=== PATIENT | male | born 1945 | race Caucasian/White ===

== ENCOUNTER 2018-12-05 07:55 | Outpatient (CLI) | payer MEDICARE ==
[2018-12-05 10:09] LABS: BASOPHILS % (AUTO) 0.8 %; EOSINOPHILS # (AUTO) 0.1 10^3/uL (0.0-0.7); EOSINOPHILS % (AUTO) 1.5 %; HGB - HEMOGLOBIN 14.8 g/dL (14.0-18.0); LYMPHOCYTES # (AUTO) 1.6 10^3/uL (1.5-3.5); LYMPHOCYTES % (AUTO) 29.4 %; MEAN CORPUSCULAR HEMOGLOBIN 31.7 pg (27.0-31.0); MEAN CORPUSCULAR HGB CONC 34.2 g/dL (32.0-36.0); MEAN CORPUSCULAR VOLUME 92.7 fL (80.0-94.0); MEAN PLATELET VOLUME 9.6 fL (7.4-11.4); MONOCYTES # (AUTO) 0.5 10^3/uL (0.0-1.0); MONOCYTES % (AUTO) 9.3 %; NEUTROPHILS # (AUTO) 3.2 10^3/uL (1.5-6.6); PLT - PLATELET COUNT 192 10^3/uL (130-450); RED BLOOD COUNT 4.67 10^6/uL (4.70-6.10); RED CELL DISTRIBUTION WIDTH 14.3 % (12.0-15.0); WHITE BLOOD COUNT 5.4 x10^3/uL (4.8-10.8)
[2018-12-05 10:40] LABS: ALBUMIN/GLOBULIN RATIO 1.4 (1.0-2.2); ALKALINE PHOSPHATASE 59 IU/L (42-121); ALT ALANINE AMINOTRANSFERASE 26 IU/L (10-60); AST ASPARTATE AMINOTRANSFERASE 22 IU/L (10-42); BILIRUBIN,TOTAL 1.8 mg/dL (0.2-1.0); BUN - BLOOD UREA NITROGEN 11 mg/dL (6-20); CALCIUM 9.7 mg/dL (8.5-10.3); CARBON DIOXIDE - CO2 26 mmol/L (21-32); CHLORIDE 98 mmol/L (101-111); CHOL/HDL RATIO 3.5 (<5.0); CHOLESTEROL 126 mg/dL; CREATININE 0.9 mg/dL (0.6-1.2); GFR - MDRD 83 (>89); GLUCOSE 242 mg/dL (70-100); HDL CHOLESTEROL 36 mg/dL; LDL CHOLESTEROL,CALCULATED 25 mg/dL; LDL/HDL RATIO 0.7 (<3.6); SODIUM 136 mmol/L (135-145); TOTAL PROTEIN 6.9 g/dL (6.7-8.2); VLDL CHOLESTEROL 65 mg/dL
[2018-12-05 10:52] LABS: HB2 TOTAL 15.6 g/dL; HEMOGLOBIN A1C 1.05 g/dL; HEMOGLOBIN A1C % 8.3 % (4.6-6.2)
== END 2018-12-05 07:56 | disposition home or self-care (01) ==
LOC: LAB.F 07:55
PROVIDERS: ATTEND Internal Medicine
DX: E78.5 Hyperlipidemia, unspecified (principal); E11.9 Type 2 diabetes mellitus without complications; R19.7 Diarrhea, unspecified
CPT/HCPCS: 36415; 80053; 80061; 83036; 83516; 83721; 84443; 85025

== ENCOUNTER 2023-04-02 21:34 | Outpatient (CLI) | payer MEDICARE | END 2023-04-02 23:59 | disposition EMS.NT | LOC: EMS 21:34 | DX: S51.812A Laceration without foreign body of left forearm, initial encounter (principal); W10.9XXA Fall (on) (from) unspecified stairs and steps, initial encounter; Y92.009 Unspecified place in unspecified non-institutional (private) residence as the place of occurrence of the external cause; Z79.02 Long term (current) use of antithrombotics/antiplatelets ==

== ENCOUNTER 2023-04-03 09:46 | Outpatient (CLI) | payer MEDICARE | END 2023-04-03 09:47 | disposition critical access hospital (66) | LOC: EMS 09:46 | DX: R53.1 Weakness (principal) | CPT/HCPCS: A0425; A0429 ==

== ENCOUNTER 2023-04-03 10:11 | Emergency (ER) | payer MEDICARE ==
--- OUTSIDE RECORDS SUMMARY | 2023-04-03 10:24 | EXTERNAL MEDICAL SUMMARY RPT | Continuity of Care Document ---
Author Name Unknown Address [address] [id number] Phone Organization [place] Address [address] [place] [address] Phone Results/Labs test date facility value unit notes
[2023-04-03] MEDS ORDERED: SODIUM CHLORIDE 0.9% 1,000 ML IV STA (10:39)
[2023-04-03 10:44] LABS: BASOPHILS # (AUTO) 0.1 10^3/uL (0.0-0.1); BASOPHILS % (AUTO) 0.9 %; EOSINOPHILS # (AUTO) 0.1 10^3/uL (0.0-0.7); EOSINOPHILS % (AUTO) 1.9 %; HCT - HEMATOCRIT 36.9 % (42.0-52.0); HGB - HEMOGLOBIN 12.3 g/dL (14.0-18.0); LYMPHOCYTES # (AUTO) 0.8 10^3/uL (1.5-3.5); LYMPHOCYTES % (AUTO) 14.1 %; MEAN CORPUSCULAR HEMOGLOBIN 33.8 pg (27.0-31.0); MEAN CORPUSCULAR HGB CONC 33.3 g/dL (32.0-36.0); MEAN CORPUSCULAR VOLUME 101.4 fL (80.0-94.0); MEAN PLATELET VOLUME 10.8 fL (7.4-11.4); MONOCYTES # (AUTO) 0.7 10^3/uL (0.0-1.0); MONOCYTES % (AUTO) 11.8 %; NEUTROPHILS # (AUTO) 4.2 10^3/uL (1.5-6.6); NEUTROPHILS % (AUTO) 71.1 %; PLT - PLATELET COUNT 79 10^3/uL (130-450); RED BLOOD COUNT 3.64 10^6/uL (4.70-6.10); RED CELL DISTRIBUTION WIDTH 14.2 % (12.0-15.0); WHITE BLOOD COUNT 5.9 x10^3/uL (4.8-10.8)
[2023-04-03 10:58] LABS: ALBUMIN/GLOBULIN RATIO 1.7 (1.0-2.2); BILIRUBIN,TOTAL 1.5 mg/dL (0.2-1.0); CALCIUM 9.8 mg/dL (8.5-10.3); CREATININE 1.1 mg/dL (0.6-1.3); POTASSIUM 4.1 mmol/L (3.5-4.5); TOTAL PROTEIN 6.3 g/dL (6.4-8.9)
--- NOTE | 2023-04-03 12:31 | ED Physician Documentation ---
PD HPI FOCAL NEURO - Stated complaint Stated Complaint: Fall - Chief complaint Chief Complaint: Trauma Ext - History obtained from History obtained from: Patient - Additional information Additional information: Patient is a 77-year-old male with a history of coronary artery disease, peripheral artery disease presenting for evaluation of left leg and arm weakness that he noted last night as he was going upstairs to bed. Patient states that he tripped walking up the stairs fell backwards. He does not believe he hit his head. He did not have LOC. He reports having difficulty in moving his left leg which still feels weak this morning. He has also noted difficulty in coordination with his left arm. He denies a headache. He does take a daily baby aspirin and Plavix. He follows with vascular surgery at [facility]. He denies chest pain, shortness of air, recent illness. Review of Systems Constitutional: denies: Fever Cardiac: denies: Chest pain / pressure Respiratory: denies: Dyspnea Neurologic: reports: Focal weakness PD PAST MEDICAL HISTORY - Allergies Allergies/Adverse Reactions: Allergies Allergy/AdvReac Type Severity Reaction Status Date / Time No Known Drug Allergies Allergy Verified 04/03/23 10:27 PD ED PE NORMAL - General General: Alert and oriented X 3, No acute distress, Well developed/nourished - HEENT HEENT: Atraumatic, PERRL, EOMI, Moist mucous membranes - Neck Neck: Supple, no meningeal sign - Cardiac Cardiac: RRR, No murmur - Respiratory Respiratory: No respiratory distress, Clear bilaterally - Abdomen Abdomen: Soft, Non tender - Derm Derm: Warm and dry - Neuro Neuro: Alert and oriented X 3, auction block clerk 2-12 intact, No sensory deficit, Normal speech, Other (Difficulty with [id number]-ct-[id number] of left arm). No: No motor deficit NIHSS - Level of Consciousness Level of consciousness: (0) Alert, Keenly responsive LOC Questions: (0) Answers both Q's correct LOC Commands: (0) Performs both correctly - Gaze Best Gaze: (0) Normal - Visual Visual: (0) No loss - Facial Palsy Facial Palsy: (0) Normal, symmetrical movement - Motor Arms (both separate) Motor Arm (right): (0) No drift Motor Arm (left): (1) Drift - Motor Legs (both separate) Motor Leg (right): (0) No drift Motor Leg (left): (0) No drift - Limb Ataxia Limb Ataxia: (1) Present in 1 limb - Sensory Sensory: (0) Normal - Best Language Best Language: (0) No aphasia - Dysarthria Dysarthria: (0) Normal - Extinction and Inattention (formally neg Extinction and inattention: (0) No abnormality - Total Score/Results Total Score/Result: 2 Results - Vitals Vitals: Vital Signs - 24 hr 04/03/23 04/03/23 04/03/23 10:21 14:24 15:59 Temperature 36.5 C Heart Rate 66 69 67 Respiratory 18 16 23 Rate Blood Pressure 134/67 H 129/68 119/60 O2 Saturation 97 97 96 Oxygen O2 Source Room air - EKG (time done) 1035 EKG releavant findings:: EKG personally interpreted by author of this note. Relevant findings are: Rate 66, normal sinus rhythm, no STEMI, Intraventricular conduction delay Rate: Rate (enter#) (66) Rhythm: NSR Intervals: Other (Intraventricular conduction delay) Ischemia: No: ST elevation c/w ischemia Compare to prior EKG: Unchanged from prior EKG - Labs Labs: Laboratory Tests 04/03/23 04/03/23 10:30 10:30 WBC 5.9 RBC 3.64 L Hgb 12.3 L Hct 36.9 L MCV 101.4 H MCH 33.8 H MCHC 33.3 RDW 14.2 Plt Count 79 L MPV 10.8 Neut # (Auto) 4.2 Lymph # (Auto) 0.8 L [place] # (Auto) 0.7 Eos # (Auto) 0.1 Baso # (Auto) 0.1 Absolute Nucleated RBC 0.00 Nucleated RBC % 0.0 Sodium 138 Potassium 4.1 Chloride 105 Carbon Dioxide 26 Anion Gap 7.0 BUN 19 Creatinine 1.1 Estimated GFR (MDRD) 65 L Glucose 114 H Calcium 9.8 Total Bilirubin 1.5 H AST 17 ALT 14 Alkaline Phosphatase 57 Total Protein 6.3 L Albumin 4.0 Globulin 2.3 Albumin/Globulin Ratio 1.7 PD Medical Decision Making - ED course Complexity details: reviewed results, re-evaluated patient, d/w patient ED course: Patient is a 77-year-old with a history of coronary artery disease and peripheral vascular disease presenting for evaluation of left-sided weakness since last night. He is outside the window for thrombolytics. He does have deficits noted on exam. Labs were obtained including CBC, chemistries which were noncontributory. EKG is reviewed and a sinus rhythm. CT head and head and neck angios were reviewed. Or concerning stenoses in bilateral carotid and vertebral arteries which I reviewed with telestroke as well as vascular surgery. Patient has been accepted to [facility] for vascular surgery evaluation. He has been continued on aspirin and Plavix. 1345 - D/W Telestroke. They are recommending starting patient on Brilinta and stopping the Plavix. They are also recommending transfer to facility with vascular surgery. 1425 - D/W Dr. Tabor (Vascular, ) - Agrees to consult on the patient. Recommends admission to hospitalist service. Also discussed to telestroke's recommendations to transition to Brilinta which we do not carry. He states he would not view this as a Plavix failure and will recommend to continue on aspirin and Plavix for now. 1449 - D/W Dr. Hunter (Hospitalist, ) - Agrees to admit the patient for further management. Departure - Departure Disposition: 02 Transfer Acute Care Hosp Clinical Impression: CVA (cerebral vascular accident), Carotid stenosis, bilateral, Stenosis of both vertebral arteries Condition: Good Forms: PCP List Discharge Date/Time: 04/03/23 16:56
--- NOTE | 2023-04-03 13:10 | CT Report ---
PROCEDURE: HEAD WO INDICATIONS: L sided weakness since yesterday TECHNIQUE: Noncontrast 4.5 mm thick angled axial sections acquired from the foramen magnum to the vertex. For r adiation dose reduction, the following was used: automated exposure control, adjustment of mA and/or kV according to patient size. COMPARISON: Correlation is made with the accompanying CT angiogram. FINDINGS: Image quality: Excellent. CSF spaces: Basal cisterns are patent. No extra-axial fluid collections. Ventricles are normal in size and shape. Brain: No midline shift. No intracranial masses or hemorrhage. Ramirez-white matter interface is norm al. Skull and face: Calvarium and visualized facial bones are intact, without suspicious lesions. Sinuses: Visualized sinuses and mastoids are clear. IMPRESSION: No intracranial hemorrhage is seen. No significant intracranial abnormality is seen. If there is strong clinical concern for a stroke, please consider a dedicated brain MRI for further e valuation (assuming that there is no contraindication to MRI). Reviewed by: William Barrett MD on 04/03/2023 12:09 PM JOSE Approved by: William Barrett MD on 04/03/2023 12:09 PM JOSE Station ID: [id number]
--- NOTE | 2023-04-03 13:16 | CT Report ---
PROCEDURE: CT Angio Head/Neck INDICATIONS: L sided weakness since yesterday TECHNIQUE: After the administration of intravenous contrast, 1 mm thick sections acquired from the aortic arch t hrough the [place]. Post-contrast 4.5 mm thick sections then re-acquired from the foramen m agnum to the vertex. 3-dimensional sizhpfb-vjmgiatxk-pscibosirv (MIP) and/or volume rendering reform ats were acquired of the central intracranial vasculature and neck separately. For radiation dose re duction, the following was used: automated exposure control, adjustment of mA and/or kV according to patient size. CONTRAST: 100ml omni 300 COMPARISON: Correlation is made with the accompanying noncontrast head CT. FINDINGS: Image quality: This study is limited by quantum mottle artifact. HEAD CT: CSF Spaces: Basal cisterns are patent. No extra-axial fluid collections. Ventricles are normal in size and shape. Brain: No midline shift. No intracranial bleeds or masses. No abnormal intracranial enhancement. Ramirez-white interface appears normal. Skull and face: Calvarium and visualized facial bones appear intact, without suspicious lesions. St ernotomy changes are noted. Sinuses: Visualized sinuses and mastoids are clear. HEAD CT ANGIOGRAPHY: Anterior circulation: Intracranial internal carotid arteries demonstrate dense atherosclerotic calci fication, without a 60% narrowing seen on each side. The flow within the paired anterior cerebral art eries is normal and symmetric. The flow within the middle cerebral arteries is normal and symmetric. The anterior communicating artery is seen. No aneurysms are seen. Posterior circulation: Focal calcification can be seen involving the left before segment, with an are a of approximately 50% narrowing. The V4 segments are otherwise unremarkable. There is a a normal suman earing basilar artery. Flow within the posterior cerebral arteries is normal and symmetric. No aneu rysms are seen. NECK CT ANGIOGRAPHY: Carotid system: The great vessels demonstrate a conventional anatomy as they arise from the aortic a rch. The origins of the common carotid arteries appear patent. The common carotid arteries demonstr ate normal caliber and courses. The bifurcation regions demonstrate dense atherosclerotic calcificat ion. There is 70-80% narrowing seen involving the left proximal internal carotid artery. There is suman roximately 70% narrowing involving the left proximal internal carotid artery. The more distal interna l carotid arteries demonstrate normal course and caliber. Posterior circulation: There is dense calcification seen involving the left vertebral artery origin, with likely 80-90% narrowing. Moderate calcification can be seen involving the origin of the right ve rtebral artery, with likely 70-80% narrowing. Soft tissues: Visualized neck soft tissues demonstrate no suspicious abnormalities. Bones: No suspicious bony lesions. Visualized cervical spine appears normally aligned. Moderate ce rvical spine degenerative change is seen. IMPRESSION: No significant intracranial arterial abnormalities are seen. Focal narrowing seen in the seen involving the origins of both internal carotid arteries, left worse than right. High-grade narrowing can be seen involving the proximal vertebral arteries, left worse than right. Approximately 50% narrowing seen involving the left V4 segment. Additional findings: Moderate cervical spine degenerative change Sternotomy The estimate of stenosis included in the report of the imaging study was calculated using the NASCET method Reviewed by: William Barrett MD on 04/03/2023 12:14 PM JOSE Approved by: William Barrett MD on 04/03/2023 12:14 PM JOSE Station ID: [id number]
[2023-04-03] MEDS ORDERED: ASPIRIN CHEW 81 MG TABLET PO STA (14:25)
[2023-04-03] MEDS ORDERED: CLOPIDOGREL 75 MG TABLET PO STA (14:25)
[2023-04-03 16:05] VITALS: BP 119/60; O2SAT 96
[2023-04-03] MEDS ORDERED: iohexoL-300 100 ML VIAL IVP ONE (17:57)
== END 2023-04-03 16:56 | disposition short-term general hospital (02) ==
LOC: EDUNIT# → ED 10:11
DX: I65.23 Occlusion and stenosis of bilateral carotid arteries (principal); I63.9 Cerebral infarction, unspecified; I65.03 Occlusion and stenosis of bilateral vertebral arteries; R29.702 NIHSS score 2
CPT/HCPCS: 36415; 70450; 70496; 70498; 80053; 85025; 93005; 99285; A9270; Q9967

== ENCOUNTER 2023-04-03 16:28 | Outpatient (CLI) | payer MEDICARE | END 2023-04-03 16:29 | disposition short-term general hospital (02) | LOC: EMS 16:28 | PROVIDERS: ATTEND Emergency Medicine | DX: I63.239 Cerebral infarction due to unspecified occlusion or stenosis of unspecified carotid artery (principal) | CPT/HCPCS: A0425; A0426 ==

== ENCOUNTER 2023-09-30 13:11 | Outpatient (CLI) | payer MEDICARE | END 2023-09-30 23:59 | disposition left against medical advice (07) | LOC: EMS 13:11 | DX: R10.11 Right upper quadrant pain (principal); R07.81 Pleurodynia; W18.12XA Fall from or off toilet with subsequent striking against object, initial encounter; Y92.012 Bathroom of single-family (private) house as the place of occurrence of the external cause ==

== ENCOUNTER 2023-09-30 16:30 | Outpatient (CLI) | payer MEDICARE | END 2023-09-30 16:31 | disposition EMS.NT | LOC: EMS 16:30 | DX: Z03.89 Encounter for observation for other suspected diseases and conditions ruled out (principal) ==

== ENCOUNTER 2023-10-04 09:15 | Outpatient (CLI) | payer MEDICARE | END 2023-10-04 23:59 | disposition EMS.NT | LOC: EMS 09:15 | DX: R53.1 Weakness (principal) ==

== ENCOUNTER 2023-10-05 07:52 | Outpatient (CLI) | payer MEDICARE | END 2023-10-05 23:59 | disposition EMS.NT | LOC: EMS 07:52 | DX: Z03.89 Encounter for observation for other suspected diseases and conditions ruled out (principal) ==

== ENCOUNTER 2023-12-29 08:47 | Outpatient (CLI) | payer MEDICARE | END 2023-12-29 23:59 | disposition critical access hospital (66) | LOC: EMS 08:47 | DX: R11.2 Nausea with vomiting, unspecified (principal); R19.7 Diarrhea, unspecified; I48.91 Unspecified atrial fibrillation | CPT/HCPCS: A0425; A0427 ==

== ENCOUNTER 2023-12-29 09:12 | Inpatient (IN) | payer MEDICARE ==
--- NOTE | 2023-12-29 09:33 | ED Physician Documentation ---
PD HPI NVD - Stated complaint Stated Complaint: N/V/D - Chief complaint Chief Complaint: Abd Pain - History obtained from History obtained from: Patient - History of Present Illness Timing - onset: How many days ago (4-5) Timing - duration: Days (4-5) Timing - details: Gradual onset, Still present Associated symptoms: Dizzy (lightheaded), Loss of appetite. No: Fever, Abdominal pain Contributing factors: No: Sick contact, Bad food Similar symptoms before: Has not had sx before Recently seen: Clinic (donny portillo yesterday to look at right BKA leg wound and appearance appearing okay.) Review of Systems Constitutional: denies: Fever, Chills GI: reports: Nausea, Vomiting, Diarrhea (2 loose stools just yesterday). denies: Abdominal Pain, Abdominal Swelling, Hematemesis Skin: denies: Rash, Lesions (has wound at right BKA that was infected, but is not having redness/swelling/pain proximal.) PD PAST MEDICAL HISTORY - Past Medical History Past Medical History: Yes Endocrine/Autoimmune: Type 2 diabetes - Past Surgical History Past Surgical History: Yes Ortho: Other - Present Medications Home Medications: Ambulatory Orders Medication Instructions Recorded Confirmed Amlodipine Besylate [Norvasc] 10 mg PO DAILY 12/29/23 Clopidogrel [Plavix] 75 mg PO DAILY 12/29/23 Empagliflozin [Jardiance] 10 mg PO DAILY 12/29/23 Ertugliflozin Pidolate [Steglatro] 15 mg PO DAILY 12/29/23 Furosemide [Lasix] 40 mg PO DAILY 12/29/23 Lisinopril [Zestril] 20 mg PO DAILY 12/29/23 Metoprolol Succinate 100 mg PO DAILY 12/29/23 Nortriptyline [Pamelor] 25 mg PO QPM 12/29/23 Rosuvastatin Calcium 20 mg PO HS 12/29/23 SITagliptin [Januvia] 100 mg PO DAILY 12/29/23 Spironolactone [Aldactone] 25 mg PO DAILY 12/29/23 glipiZIDE [Glipizide] 10 mg PO DAILY 12/29/23 oxyCODONE [Roxicodone] 5 mg PO Q4-6H PRN 12/29/23 - Allergies Allergies/Adverse Reactions: Allergies Allergy/AdvReac Type Severity Reaction Status Date / Time No Known Drug Allergies Allergy Verified 12/29/23 09:24 - Social History Does the pt smoke?: No Smoking Status: Never smoker Does the pt drink ETOH?: No Does the pt have substance abuse?: No PD ED PE NORMAL - Vitals Vital signs reviewed: Yes - General General: Alert and oriented X 3, No acute distress, Well developed/nourished - Extremities Extremities: Other (right BKA wound with open sore on stump end without purulence. No proximal redness/tenderness/swelling above wound nor in thigh.) - Neuro Neuro: Alert and oriented X 3, No motor deficit, Normal speech Results - Vitals Vitals: Vital Signs - 24 hr 12/29/23 12/29/23 12/29/23 11:24 13:00 15:00 Heart Rate 111 H 109 H 110 H Respiratory 19 13 18 Rate Blood Pressure 113/80 108/75 O2 Saturation 96 98 100 12/29/23 17:30 Heart Rate 112 H Respiratory 22 Rate Blood Pressure 109/80 O2 Saturation 97 Oxygen O2 Source Room air - Labs Labs: Laboratory Tests 12/29/23 12/29/23 12/29/23 09:53 09:53 09:53 WBC 10.0 RBC 4.14 L Hgb 10.6 L Hct 37.5 L MCV 90.6 MCH 25.6 L MCHC 28.3 L RDW 19.9 H Plt Count 312 MPV 11.0 Neut # (Auto) 9.2 H Lymph # (Auto) 0.4 L [place] # (Auto) 0.4 Eos # (Auto) 0.0 Baso # (Auto) 0.0 Absolute Nucleated RBC 0.00 Nucleated RBC % 0.0 Manual Slide Review Indicated WBC Morphology NORMAL APPEARANCE Platelet Estimate NORMAL (130-450,000) Platelet Morphology NORMAL APPEARANCE RBC Morph Micro Appear 1+ POLYCHROMASIA Sodium 139 Potassium 4.5 Chloride 99 L Carbon Dioxide 19 L Anion Gap 21.0 H BUN 22 H Creatinine 1.3 Estimated GFR (MDRD) 54 L Glucose 232 H Lactic Acid 5.6 H* Calcium 10.3 Magnesium 2.2 Total Bilirubin 1.7 H AST 57 H ALT 58 Alkaline Phosphatase 101 Total Creatine Kinase Total Protein 6.7 Albumin 3.9 Globulin 2.8 Albumin/Globulin Ratio 1.4 Lipase 15 12/29/23 12/29/23 12/29/23 09:53 11:57 17:24 WBC RBC Hgb Hct MCV MCH MCHC RDW Plt Count MPV Neut # (Auto) Lymph # (Auto) [place] # (Auto) Eos # (Auto) Baso # (Auto) Absolute Nucleated RBC Nucleated RBC % Manual Slide Review WBC Morphology Platelet Estimate Platelet Morphology RBC Morph Micro Appear Sodium Potassium Chloride Carbon Dioxide Anion Gap BUN Creatinine Estimated GFR (MDRD) Glucose Lactic Acid 5.5 H* 6.4 H* Calcium Magnesium Total Bilirubin AST ALT Alkaline Phosphatase Total Creatine Kinase 37 Total Protein Albumin Globulin Albumin/Globulin Ratio Lipase - Rads (name of study) abd/pelvic CT Relevant Findings:: Prelim report reviewed (GB hydrops with mild wall thickening. ), EMP independent interpretation of test PD Medical Decision Making - ED course Complexity details: reviewed results (wbc is normal without bandemia. bicarb is not elevated. He has elevated lactate which did not lower after fluids 2 liters. Creatinine not elevated significantly. He is not on Metformin by med list. Other of his meds not associated with lactic acid elevation per [employer]. ), considered differential, d/w patient, d/w web development consultant (hospitalist. Unclear cause of the elevated lactate. Not clear source of infection. No fever, normal WBC, nontender abd. leg wound not appearing infected. ) Reviewed Lab Results: Leg stump does not appear infected proximaly without redness, tenderness above wound. No fever. Normal CK so not appearing deep tissue. CT abd with some gall bladder cahnges but not having abd pain nor tenderness, so not clearly that. Unclear cause of lactate and he was vomiting 4 days and still emesis with water intake so intractable vomiting despite meds. CT does show some imflammed esophagus c/w esophagitis. ED course: The patient has had 4 to 5 days of nausea with vomiting and easy satiety without any abdominal pain per se. No hematemesis. No diarrhea except for 1 or 2 loose stools in the past day. No melena. He has not had fever chills cough or cold. He has had a feeling of general weakness. He was hoping it would pass over a couple of days but still has the same symptoms so here for evaluation. The patient does have dry lips and mucosa. He does seem slightly pale so under hydration is clinically apparent. He is still awake and conversant. He does not have any abdominal tenderness to palpation at all. Bowel sounds are present but hypoactive. The wound on his right BKA stump has some open wound with minimal drainage. There is no proximal redness nor swelling. No tenderness in the thigh and no tenderness or swelling in the other leg calf or thigh. He was given IV fluids and antiemetics with not much improvement in his nausea. Repeat antiemetic with metoclopramide seem to have a better improvement. He was given famotidine as well given the likely stomach irritation from the repetitive vomiting. Blood test showed a normal white count. He is afebrile. He is not tachycardic. However his lactic acid level was elevated at 5.6. Given he clinically does not have the appearance of sepsis. He does not have abdominal pain or tenderness to suggest intestinal ischemia. His leg wound does not appear infected. He is diabetic and is on several medicines for that but is not on metformin. I looked up his other medicines on [facility] and they do not seem to be associated with a lactic acidosis. At this point I presume he is under hydrated. His renal function however still good with a creatinine of 1.2. I am still curious about the lactic acidosis. I feel uncomfortable with his blood test being off like that. A repeat 2:01 liters of fluid was still 5.5. I talked with the hospitalist who asked that we get a CT of his abdomen and pelvis. This is reasonable. Otherwise I do not see signs of infection at the leg wound. As such I do not see an impetus for him having to go back to [facility] to see orthopedics per se. Departure - Departure Disposition: ED Place in Observation Clinical Impression: Nausea and vomiting, Volume depletion, Elevated lactic acid level, S/P BKA (below knee amputation) unilateral, Esophagitis, Acute hydrops of gallbladder Discharge Date/Time: 12/29/23 19:05
[2023-12-29] MEDS: SODIUM CHLORIDE 0.9% 1,000 ML IV STA ×2 (09:49→11:04)
[2023-12-29] MEDS: ONDANSETRON 4 MG/2 ML VIAL IVP STA (09:50)
[2023-12-29] MEDS: FAMOTIDINE 20 MG/2 ML VIAL IVP STA (09:53)
[2023-12-29 10:01] LABS: BASOPHILS % (AUTO) 0.1 %; HCT - HEMATOCRIT 37.5 % (42.0-52.0); HGB - HEMOGLOBIN 10.6 g/dL (14.0-18.0); LYMPHOCYTES # (AUTO) 0.4 10^3/uL (1.5-3.5); LYMPHOCYTES % (AUTO) 3.7 %; MEAN CORPUSCULAR HEMOGLOBIN 25.6 pg (27.0-31.0); MEAN CORPUSCULAR HGB CONC 28.3 g/dL (32.0-36.0); MEAN CORPUSCULAR VOLUME 90.6 fL (80.0-94.0); MONOCYTES # (AUTO) 0.4 10^3/uL (0.0-1.0); MONOCYTES % (AUTO) 3.9 %; NEUTROPHILS # (AUTO) 9.2 10^3/uL (1.5-6.6); PLT - PLATELET COUNT 312 10^3/uL (130-450); RED BLOOD COUNT 4.14 10^6/uL (4.70-6.10); RED CELL DISTRIBUTION WIDTH 19.9 % (12.0-15.0)
[2023-12-29 10:02] LABS: SLIDE REVIEW? Indicated
[2023-12-29 10:17] LABS: MAGNESIUM 2.2 mg/dL (1.7-2.3)
[2023-12-29 10:24] LABS: ALBUMIN 3.9 g/dL (3.2-5.5); ALBUMIN/GLOBULIN RATIO 1.4 (1.0-2.2); BILIRUBIN,TOTAL 1.7 mg/dL (0.2-1.0); CALCIUM 10.3 mg/dL (8.5-10.3); CREATININE 1.3 mg/dL (0.6-1.3); POTASSIUM 4.5 mmol/L (3.5-4.5); TOTAL PROTEIN 6.7 g/dL (6.4-8.9)
[2023-12-29 10:41] LABS: PLATELET ESTIMATE, MANUAL NORMAL (130-450,000) (NORMAL); PLATELET MORPHOLOGY NORMAL APPEARANCE (NORMAL)
[2023-12-29 10:43] LABS: WBC MORPHOLOGY (MULTIPLE) NORMAL APPEARANCE (NORMAL)
[2023-12-29] MEDS: LACTATED RINGERS 1,000 ML IV STA (13:34)
[2023-12-29] MEDS: METOCLOPRAMIDE 10 MG/2 ML VIAL IVP STA (13:34)
[2023-12-29] MEDS ORDERED: iohexoL-300 100 ML VIAL ONE (13:44)
--- NOTE | 2023-12-29 14:43 | CT Report ---
PROCEDURE: Abdomen/Pelvis W INDICATIONS: nausea and vomiting 5 days CONTRAST: Omni 300 100ml TECHNIQUE: After the administration of intravenous contrast, a CT scan of the abdomen and pelvis was performed. Images were recorded and evaluated at appropriate window settings. Reformats: coronal and sagittal. F or radiation dose reduction, the following was used: automated exposure control, adjustment of mA and /or kV according to patient size. COMPARISON: None. FINDINGS: Image quality: Diagnostic. Lower chest: Marked cardiomegaly. Small pleural effusions. Circumferential thickening of the lower es ophagus. Liver: No solid mass. Gallbladder: Cholelithiasis. Gallbladder is distended. Trace pericholecystic fluid present. No wall t hickening. Biliary tree: No intrahepatic or extrahepatic dilation, accounting for age. Spleen: No splenomegaly. Pancreas: No pancreatic ductal dilation. Adrenals: No adrenal nodule. Mild hypertrophy of the left adrenal gland. Kidneys and ureters: No hydronephrosis. No renal cystic lesion which requires follow up. No solid mas s. Stomach, bowel and peritoneum: No gastric or small bowel dilation. No abnormal wall thickening. No pa thologic free fluid. Diverticulosis without evidence of diverticulitis. Normal appendix. Lymph nodes: No central or retroperitoneal adenopathy. Vessels: No infrarenal aortic aneurysm. Patent portal vein. PELVIS Reproductive organs: Unremarkable. Bladder: No abnormal wall thickening, accounting for underdistention. Pelvic lymph nodes: No pelvic adenopathy by size criteria. Bones: No aggressive osseous abnormality. Other: Moderate fat within the inguinal canals. Small umbilical hernia containing fat. IMPRESSION: Gallbladder hydrops and trace pericholecystic fluid in the setting of cholelithiasis. Acute cholecyst itis not excluded. Consider right upper quadrant ultrasound. Segmental thickening of the lower esophagus, likely esophagitis in the setting of vomiting. Malignanc y less likely. Colonic diverticulosis without evidence of diverticulitis. Reviewed by: Eleno Alfaro MD on 12/29/2023 2:41 PM PDT Approved by: Eleno Alfaro MD on 12/29/2023 2:41 PM PDT Station ID: [id number]
[2023-12-29] MEDS: iohexoL-300 100 ML VIAL IVP ONE (14:52)
[2023-12-29] MEDS ORDERED: SODIUM CHLORIDE FLUSH 0.9% 10 ML SYRINGE IVP PRN (17:54)
[2023-12-29] MEDS ORDERED: ACETAMINOPHEN 325 MG TABLET PO PRN (17:54)
[2023-12-29] MEDS ORDERED: ONDANSETRON 4 MG/2 ML VIAL IVP PRN (17:54)
[2023-12-29] MEDS ORDERED: HYDROcod/ACETAM 5/325 MG TABLET PO PRN (17:54)
[2023-12-29] MEDS ORDERED: ONDANSETRON ODT 4 MG TABLET TL PRN (17:54)
--- NOTE | 2023-12-29 18:04 | Ultrasound Report ---
PROCEDURE: Abdomen Limited INDICATIONS: gallbladder enlarged on CT. TECHNIQUE: Real-time focused scanning was performed of the abdomen, with image documentation. COMPARISONS: CT abdomen and pelvis from earlier same day. FINDINGS: Liver: Liver is normal in size and homogeneous in echotexture. Gallbladder: The gallbladder is distended. Mild gallbladder wall thickening measuring up to 4.2 mm in thickness. There are numerable small gallstone scattered throughout the gallbladder. No suspicious v ascular mass lesion noted. No asymmetric wall thickening identified. Mild pericholecystic fluid. Nega tive sonographic Gutierrez sign. Biliary ducts: Intrahepatic bile ducts are non-dilated. Extrahepatic bile duct caliber is prominent measuring 10 mm. Normal is 6-7 mm or less in diameter, or mm or less post-cholecystectomy. No find ings of choledocholithiasis. Pancreas: Visualized portions of the pancreas are sonographically normal. Right kidney: Normal in size and echotexture. Right kidney measures 10.9 cm long. No hydronephrosis or nephrolithiasis. No solid masses. No complex renal cystic lesions which require follow-up. IVC: Intrahepatic inferior vena cava is patent. Miscellaneous: No free abdominal fluid. IMPRESSION: Gallbladder hydrops with numerous small gallstones, mild wall thickening, and trace pericholecystic f luid. Although there is a negative sonographic Gutierrez's sign, findings may represent very early devel oping acute cholecystitis. Additionally, prominent common bile duct at 10 mm in diameter without defi nite choledocholithiasis. Consider correlation with laboratory evaluation. Findings were discussed with Dr. Conner of the Emergency department at 1800 hrs. Reviewed by: Romaine Minaya MD on 12/29/2023 6:02 PM PDT Approved by: Romaine Minaya MD on 12/29/2023 6:02 PM PDT Station ID: [id number]
--- NOTE | 2023-12-29 19:09 | HISTORY & PHYSICAL EXAMINATION ---
Chief Complaint - Chief Complaint Chief Complaint: Nausea, vomiting History of Present Illness - Admitted From Admitted From:: ED - History Obtained From Records Reviewed: Yes History obtained from: Patient Exam Limitations: None - History of Present Illness HPI Comment/Other: Patient is a 78-year-old male with past medical history of a left BKA due to peripheral vascular disease, coronary artery disease s/p PCI, CVA, hypertension, hyperlipidemia, type 2 diabetes, PPM who presented to the ED due to complaints of several days of nausea and vomiting without any associated abdominal pain. He was recently evaluated by his vascular surgeon at [facility] a week prior to his ED visit for his stump evaluation. Per patient, vascular surgeon noted that the wound was appropriate. He has not endorsing any pain or symptoms from his wound site. In the ED, patient's lactic acid was elevated. I did request a CT abdomen/ pelvis be performed which revealed gallbladder hydrops. I did request ED discussed this with general surgery and they were consulted on admission. To my evaluation, patient denies any symptoms and reported that his nausea and vomiting had improved significantly. His lactic acid continued to trend upward however. An ultrasound was performed which revealed evidence of cholelithiasis. Choledocholithiasis could not be ruled out. History - Past Medical History Cardiovascular: reports: High cholesterol, Coronary artery disease, Peripheral Vascular Disease Neuro: reports: CVA Endocrine/Autoimmune: reports: Type 2 diabetes - Past Surgical History Ortho: reports: Other Cardiovascular: reports: Coronary stent, Pacemaker, Cardiac catheterization Meds/Allgy - Home Medications Home Medications: Ambulatory Orders Medication Instructions Recorded Confirmed Amlodipine Besylate [Norvasc] 10 mg PO DAILY 12/29/23 Clopidogrel [Plavix] 75 mg PO DAILY 12/29/23 Empagliflozin [Jardiance] 10 mg PO DAILY 12/29/23 Ertugliflozin Pidolate [Steglatro] 15 mg PO DAILY 12/29/23 Furosemide [Lasix] 40 mg PO DAILY 12/29/23 Lisinopril [Zestril] 20 mg PO DAILY 12/29/23 Metoprolol Succinate 100 mg PO DAILY 12/29/23 Nortriptyline [Pamelor] 25 mg PO QPM 12/29/23 Rosuvastatin Calcium 20 mg PO HS 12/29/23 SITagliptin [Januvia] 100 mg PO DAILY 12/29/23 Spironolactone [Aldactone] 25 mg PO DAILY 12/29/23 glipiZIDE [Glipizide] 10 mg PO DAILY 12/29/23 oxyCODONE [Roxicodone] 5 mg PO Q4-6H PRN 12/29/23 - Allergies Allergies/Adverse Reactions: Allergies Allergy/AdvReac Type Severity Reaction Status Date / Time No Known Drug Allergies Allergy Verified 12/29/23 09:24 Review of Systems - Constitutional Constitutional: denies: Fatigue, Fever, Chills - Cardiovascular Cariovascular: denies: Irregular heart rate, Palpitations, Chest pain - Respiratory Respiratory: denies: Cough, Sputum production, Wheezing - Gastrointestinal Gastrointestinal: reports: Nausea, Vomiting. denies: Abdominal pain, Abdominal distention, Constipation, Diarrhea, Rectal bleeding - All Other Systems All Other Systems: reports: Reviewed and negative Exam - Vital Signs Reviewed Vital Signs: Yes Vital Signs: Vital Signs x48h Pulse Resp BP Pulse Ox 12/29/23 17:30 112 H 22 109/80 97 12/29/23 15:00 110 H 18 100 12/29/23 13:00 109 H 13 108/75 98 12/29/23 11:24 111 H 19 113/80 96 - Physical Exam General Appearance: positive: No acute distress, Alert Respiratory: positive: Chest non-tender, No respiratory distress, Breath sounds nml Cardiovascular: positive: Regular rate & rhythm, No murmur, No gallop Abdomen: positive: Non-tender, No organomegaly, Nml bowel sounds, No distention. negative: Tenderness, Guarding, Rebound Extremities: positive: No pedal edema, Other (R BKA) Conclusion/Plan - Problem List (1) Elevated lactic acid level Conclusion/Plan: --General surgery consulted. --Concern for intra-abdominal pathology given findings on CT scan and ultrasound. --At the time of this dictation, MRCP was ordered to rule out biliary pathology given findings on ultrasound. However later learned that patient cannot undergo MRI here from the tech due to his pacemaker. --Continue on IV Zosyn. --Blood cultures ordered. (2) CAD (coronary artery disease) Conclusion/Plan: --Patient is a prior history of CAD s/p PCI. Does not remember the time this was performed. Will continue his home antiplatelet medications. No active anginal symptoms at this time. -- Continue beta-elaina and rosuvastatin. (3) CVA (cerebral vascular accident) Conclusion/Plan: --Prior history of CVA without any residual deficits. Continue statin and antiplatelet. (4) S/P BKA (below knee amputation) unilateral Conclusion/Plan: --Patient had an amputation of his lower leg in August. He had recent follow- up with his vascular surgeon at [facility] on December 23. (5) Type 2 diabetes mellitus Conclusion/Plan: --Sliding scale insulin. - Lab Results Lab results reviewed: Yes Fish Bones: 12/30/23 04:22 12/30/23 04:22
[2023-12-29] MEDS: SODIUM CHLORIDE 0.9% 2,250 ML IV STA (19:47)
[2023-12-29] MEDS: PIPERACILLIN/TAZOBACTAM 3.375 GM in SODIUM CHLORIDE 0.9% MINIBAG 100 ML IV SCH (19:47)
[2023-12-29] MEDS ORDERED: ZINC OXIDE 12% OINT 57 GM TUBE TOP PRN (19:48)
[2023-12-29] MEDS: ATORVASTATIN 40 MG TABLET PO SCH (20:06)
[2023-12-29] MEDS: NORTRIPTYLINE 25 MG CAPSULE PO SCH (20:06)
[2023-12-29] MEDS ORDERED: NON FORMULARY MED (Rosuvastatin Calcium [Rosuvastatin Calcium] 20 MG Tablet) PO SCH (21:00)
--- NOTE | 2023-12-29 23:41 | PROVIDER PROGRESS NOTE ---
Hospitalist Cross-cover Note - Cross-Cover Note Cross-Cover Note: Called by RN stating"Pt admitted this evening for lactic acidosis, currently still receiving the NS bolus of 2250ml, 1000ml through. only thing of significant finding in VS are throughout ED and on med surg floor BPs have been soft despite aggressive fluid resuscitation. 3L in today thus far. last BP 96/69 MAP78 HR:93. otherwise VSS no new s/sx. new orders?" Chart and EMR reviewed patients bP is low and no real urine output and lactate is uptrending, have ordered stat labs and have ordered bladder scan, patient is on Zosyn, give NS bolus x one and if still BP low will need to be initated on Pressors RN informed to keep us updated
[2023-12-29] MEDS ORDERED: MEROPENEM 1 GM in SODIUM CHLORIDE 0.9% MINIBAG 100 ML IV SCH (23:45)
[2023-12-29] MEDS: SODIUM CHLORIDE 0.9% 1,000 ML IV ONE (23:51)
[2023-12-30 00:11] LABS: BASOPHILS % (AUTO) 0.1 %; HCT - HEMATOCRIT 37.1 % (42.0-52.0); HGB - HEMOGLOBIN 9.9 g/dL (14.0-18.0); LYMPHOCYTES # (AUTO) 0.4 10^3/uL (1.5-3.5); LYMPHOCYTES % (AUTO) 2.9 %; MEAN CORPUSCULAR HEMOGLOBIN 25.3 pg (27.0-31.0); MEAN CORPUSCULAR HGB CONC 26.7 g/dL (32.0-36.0); MEAN CORPUSCULAR VOLUME 94.9 fL (80.0-94.0); MEAN PLATELET VOLUME 10.8 fL (7.4-11.4); MONOCYTES # (AUTO) 1.4 10^3/uL (0.0-1.0); MONOCYTES % (AUTO) 9.7 %; NEUTROPHILS # (AUTO) 12.5 10^3/uL (1.5-6.6); NEUTROPHILS % (AUTO) 86.9 %; PLT - PLATELET COUNT 240 10^3/uL (130-450); RED BLOOD COUNT 3.91 10^6/uL (4.70-6.10); RED CELL DISTRIBUTION WIDTH 20.3 % (12.0-15.0); WHITE BLOOD COUNT 14.4 x10^3/uL (4.8-10.8)
[2023-12-30 00:14] LABS: SLIDE REVIEW? Indicated
[2023-12-30 00:54] LABS: PLATELET ESTIMATE, MANUAL NORMAL (130-450,000) (NORMAL)
[2023-12-30] MEDS: SODIUM CHLORIDE FLUSH 0.9% 10 ML SYRINGE IVP SCH (00:54)
[2023-12-30 00:58] LABS: ALBUMIN 3.3 g/dL (3.2-5.5); ALBUMIN/GLOBULIN RATIO 1.7 (1.0-2.2); BILIRUBIN,TOTAL 2.1 mg/dL (0.2-1.0); CREATININE 1.3 mg/dL (0.6-1.3); POTASSIUM 4.9 mmol/L (3.5-4.5); TOTAL PROTEIN 5.2 g/dL (6.4-8.9)
[2023-12-30] MEDS: SODIUM CHLORIDE 0.9% 1,000 ML IV SCH (01:24)
--- NOTE | 2023-12-30 01:37 | PROVIDER PROGRESS NOTE ---
Hospitalist Cross-cover Note - Cross-Cover Note Cross-Cover Note: Consult Information Member Facility: [facility] Facility Requesting Clinician: Camron Alfred Patient Name: Bakari Montague Date of : 1945 Gender: Male Reason for Consult Reason for Consult: Critical Lab Clinical Note Clinical Note: per rn - "Pt in for lactic acidosis, critical lab: CO2 10 & lactic acid 9.9. Latest vitals: temp 36.4, HR 105, BP 83/60, 16 breathes/min, 99% O2 saturation on room air, and pt is easily arousable. Pt has finished 3L bolus, bladder scanned @ 2356 showing 312 ml, pt voided out 150 ml." pt continues with low bp and perfusion despite aggressive fluid boluses will start levophed titratable drip now also ordered albumin x 1 dose continue close monitoring
[2023-12-30] MEDS ORDERED: NOREPINEPHRINE/0.9 % NS 8 MG/250 ML BAG IV SCH (02:00)
[2023-12-30] MEDS: ALBUMIN 25% 12.5 GM/50 ML VIAL IV STA (02:15)
[2023-12-30 04:53] LABS: BASOPHILS % (AUTO) 0.1 %; HGB - HEMOGLOBIN 10.1 g/dL (14.0-18.0); LYMPHOCYTES # (AUTO) 0.4 10^3/uL (1.5-3.5); LYMPHOCYTES % (AUTO) 2.7 %; MEAN CORPUSCULAR HEMOGLOBIN 25.7 pg (27.0-31.0); MEAN CORPUSCULAR HGB CONC 27.3 g/dL (32.0-36.0); MEAN CORPUSCULAR VOLUME 94.1 fL (80.0-94.0); MEAN PLATELET VOLUME 11.3 fL (7.4-11.4); MONOCYTES # (AUTO) 1.3 10^3/uL (0.0-1.0); MONOCYTES % (AUTO) 8.2 %; NEUTROPHILS # (AUTO) 13.8 10^3/uL (1.5-6.6); NEUTROPHILS % (AUTO) 88.4 %; PLT - PLATELET COUNT 249 10^3/uL (130-450); RED BLOOD COUNT 3.93 10^6/uL (4.70-6.10); RED CELL DISTRIBUTION WIDTH 20.2 % (12.0-15.0); WHITE BLOOD COUNT 15.7 x10^3/uL (4.8-10.8)
[2023-12-30 05:08] LABS: SLIDE REVIEW? Indicated
[2023-12-30 05:13] LABS: CALCIUM, IONIZED 1.09 mmol/L (1.15-1.33); VBG PH 7.228 (7.31-7.41)
[2023-12-30] MEDS: HYDROmorphone 0.5 MG/0.5 ML SYRINGE IVP PRN (05:42)
[2023-12-30 05:45] LABS: PLATELET ESTIMATE, MANUAL NORMAL (130-450,000) (NORMAL)
[2023-12-30 05:52] LABS: ALBUMIN 3.5 g/dL (3.2-5.5); ALBUMIN/GLOBULIN RATIO 1.5 (1.0-2.2); BILIRUBIN,TOTAL 2.3 mg/dL (0.2-1.0); CALCIUM 9.1 mg/dL (8.5-10.3); CREATININE 1.3 mg/dL (0.6-1.3); POTASSIUM 4.9 mmol/L (3.5-4.5); TOTAL PROTEIN 5.8 g/dL (6.4-8.9)
--- NOTE | 2023-12-30 08:52 | PROVIDER PROGRESS NOTE ---
Assessment/Plan - Problem List (1) Elevated lactic acid level Assessment/Plan: (1) Elevated lactic acid level Conclusion/Plan: --Case was discussed with general surgery this morning, no immediate plans for surgery. --Overnight, patient was transferred to the ICU due to low blood pressures. He did not ultimately require pressors. Liver enzymes and lactic acid trends upwards. Unfortunately cannot undergo an MRCP here as he has a pacemaker that is not compatible with our MRI. --Will continue IV Zosyn for now due to concern for intraabdominal pathology. (2) CAD (coronary artery disease) Conclusion/Plan: --Patient is a prior history of CAD s/p PCI. Does not remember the time this was performed. Will continue his home antiplatelet medications. No active anginal symptoms at this time. -- Continue beta-elaina and rosuvastatin. (3) CVA (cerebral vascular accident) Conclusion/Plan: --Prior history of CVA without any residual deficits. Continue statin and antiplatelet. (4) S/P BKA (below knee amputation) unilateral Conclusion/Plan: --Patient had an amputation of his lower leg in August. He had recent follow- up with his vascular surgeon at [facility] on December 23. (5) Type 2 diabetes mellitus Conclusion/Plan: --Sliding scale insulin. - Current Meds Current Meds: Current Medications Generic Name Dose Route Start Last Admin Trade Name Freq PRN Reason Stop Dose Admin Atorvastatin Calcium 40 mg 12/29/23 21:00 12/29/23 20:06 Atorvastatin 40 Mg Tablet PO 40 mg QPM JOSH Administration Hydromorphone HCl 0.5 mg 12/29/23 17:54 12/30/23 05:42 Hydromorphone 0.5 Mg/0.5 Ml Syringe IVP 0.5 mg Q2H PRN Administration Pain 8 to 10 Sodium Chloride 1,000 mls @ 100 mls/hr 12/29/23 18:00 12/30/23 01:24 Normal Saline 0.9% IV 100 mls/hr .Q10H JOSH Administration Piperacillin Sod/Tazobactam 100 mls @ 200 mls/hr 12/29/23 20:00 12/30/23 08:07 Sod 3.375 gm/ Sodium Chloride IV 200 mls/hr Q6H JOSH Administration Nortriptyline HCl 25 mg 12/29/23 21:00 12/29/23 20:06 Nortriptyline 25 Mg Capsule PO 25 mg QPM JOSH Administration Sodium Chloride 10 ml 12/30/23 01:00 12/30/23 00:54 Sodium Chloride Flush 0.9% 10 Ml Syringe IVP Not Given 0100,0900,1700 JOSH - Lab Result Fish Bone Diagrams: 12/30/23 04:22 12/30/23 04:22 - Additional Planning My Orders: My Active Orders 12/29/23 17:54 Acetaminophen [Tylenol] 650 mg PO Q4HR PRN HYDROcod/ACETAM 5/325 [[place] 5/325] 1 tab PO Q4HR PRN HYDROmorphone 0.5MG SYRINGE [Dilaudid 0.5MG Syringe] 0.5 mg IVP Q2H PRN Ondansetron Inj [Zofran Inj] 4 mg IVP Q6HR PRN Ondansetron Odt [Zofran Odt] 4 mg TL Q6HR PRN Sodium Chloride Flush 0.9% [Normal Saline Flush 0.9%] 10 ml IVP PRN PRN 12/29/23 17:55 Activity Orders [RC] Q2HR IO [RC] IOSHIFT Incentive Spirometry - RT [RC] TID Initiate Bowel Care Protocol [RC] .protocol Initiate Flu Vaccine Screening [RC] ONCE Initiate Line Care Protocol [RC] QSHIFT Initiate Personal Care Protoco [RC] .protocol Initiate Pneumonia Vaccine Scr [RC] ONCE Oxygen Therapy [RC] .PRN Vital Signs [RC] Q1HR Code Status [OTHERS] Routine Condition of Patient [OTHERS] Routine DVT Prophylaxis [OTHERS] Routine 12/29/23 17:56 General Surgery Consult [CONS] Routine 12/29/23 18:00 Sodium Chloride 0.9% [Normal Saline 0.9%] 1,000 ml IV 100 mls/hr 12/29/23 18:18 CULTURE, BLOOD #1 [RM] Stat 12/29/23 18:24 CULTURE, BLOOD #2 [RM] Stat 12/29/23 19:08 RN MRI Screening [RC] .ONCE 12/29/23 19:48 Zinc Oxide [Brittany Protect] 1 applic TOP PRN PRN 12/29/23 20:00 Piperacillin/Tazobactam [Zosyn] 3.375 gm Sodium Chloride 0.9% Minibag [Normal Saline 0.9% Minibag] 100 ml IV Q6H 12/29/23 21:00 Atorvastatin [Lipitor] 40 mg PO QPM Nortriptyline [Pamelor] 25 mg PO QPM 12/30/23 01:00 Sodium Chloride Flush 0.9% [Normal Saline Flush 0.9%] 10 ml IVP 0100,0900,1700 12/30/23 Breakfast Clear Liquid Diet [DIET] 12/30/23 07:09 RN MRI Screening [RC] .ONCE 12/30/23 07:19 RT - Obtain Arterial Specimen [RC] .ONCE 12/30/23 08:00 Dextrose 5% [D5w] 1,000 ml Sodium Bicarbonate 150 meq IV 100 mls/hr 12/30/23 08:27 Blood Glucose Checks - Eating [RC] 0800,1200,1700,2100 Initiate Hypoglycemia Protocol [RC] .protocol 12/30/23 08:39 ABG - ARTERIAL BLOOD GAS [BG] Routine 12/30/23 09:00 Clopidogrel [Plavix] 75 mg PO DAILY Enoxaparin [Lovenox] 40 mg SUBQ DAILY Furosemide [Lasix] 40 mg PO DAILY Metoprolol Succinate [Toprol Xl] 100 mg PO DAILY ethyl alcohoL 62% swab [NoZin] 1 amp CHRISTOPHER BID 12/30/23 12:00 Insulin Lispro [Humalog Kwikpen U-100] 5 unit SUBQ TIDWM 12/30/23 17:30 MRCP WO [MRI] Routine 12/31/23 05:00 CBC [CBC - COMP BLD CT W/AUTO DIFF] [HEME] DAILYLAB 12/31/23 09:00 CMP [COMPREHENSIVE METABOLIC PANEL] [CHEM] DAILY 01/01/24 05:00 CBC [CBC - COMP BLD CT W/AUTO DIFF] [HEME] DAILYLAB 01/01/24 09:00 CMP [COMPREHENSIVE METABOLIC PANEL] [CHEM] DAILY 01/02/24 05:00 CBC [CBC - COMP BLD CT W/AUTO DIFF] [HEME] DAILYLAB 01/02/24 09:00 CMP [COMPREHENSIVE METABOLIC PANEL] [CHEM] DAILY 01/03/24 05:00 CBC [CBC - COMP BLD CT W/AUTO DIFF] [HEME] DAILYLAB 01/03/24 09:00 CMP [COMPREHENSIVE METABOLIC PANEL] [CHEM] DAILY Objective Vital Signs: Vital Signs - 24 hr 12/29/23 12/29/23 12/29/23 09:20 11:24 13:00 Temperature 36.3 C L Heart Rate 117 H 111 H 109 H Heart Rate [ Brachial] Respiratory 18 19 13 Rate Blood Pressure 99/75 113/80 108/75 Blood Pressure [Left Brachial artery] Blood Pressure [Right Brachial artery] O2 Saturation 100 96 98 12/29/23 12/29/23 12/29/23 15:00 17:30 21:00 Temperature 36.4 C L Heart Rate 110 H 112 H Heart Rate [ 109 H Brachial] Respiratory 18 22 18 Rate Blood Pressure 109/80 Blood Pressure [Left Brachial artery] Blood Pressure 104/72 [Right Brachial artery] O2 Saturation 100 97 98 12/29/23 12/29/23 12/30/23 21:54 23:55 01:03 Temperature 36.3 C L 36.4 C L 36.4 C L Heart Rate Heart Rate [ 93 114 H 105 H Brachial] Respiratory 16 20 16 Rate Blood Pressure Blood Pressure [Left Brachial artery] Blood Pressure 98/69 98/70 83/60 L [Right Brachial artery] O2 Saturation 98 98 99 12/30/23 12/30/23 12/30/23 02:22 03:00 04:00 Temperature 36.2 C L 36.2 C L Heart Rate Heart Rate [ 104 H 103 H 103 H Brachial] Respiratory 28 H 28 H 31 H Rate Blood Pressure Blood Pressure 98/64 99/67 103/72 [Left Brachial artery] Blood Pressure [Right Brachial artery] O2 Saturation 100 100 97 12/30/23 12/30/23 12/30/23 05:00 06:00 07:00 Temperature Heart Rate Heart Rate [ 104 H 101 H 102 H Brachial] Respiratory 26 H 21 23 Rate Blood Pressure Blood Pressure 103/69 95/66 102/69 [Left Brachial artery] Blood Pressure [Right Brachial artery] O2 Saturation 97 99 99 Oxygen O2 Source Room air I&O (Last 24 Hrs): Intake and Output Totals x24h 12/28/23 12/29/23 12/30/23 23:59 23:59 23:59 Intake Total 3437 3400 Output Total 400 150 Balance 3037 3250 - Results Results: Laboratory Results WBC 15.7 x10^3/uL (4.8-10.8) H 12/30/23 04:22 RBC 3.93 10^6/uL (4.70-6.10) L 12/30/23 04:22 Hgb 10.1 g/dL (14.0-18.0) L 12/30/23 04:22 Hct 37.0 % (42.0-52.0) L 12/30/23 04:22 MCV 94.1 fL (80.0-94.0) H 12/30/23 04:22 MCH 25.7 pg (27.0-31.0) L 12/30/23 04:22 MCHC 27.3 g/dL (32.0-36.0) L 12/30/23 04:22 RDW 20.2 % (12.0-15.0) H 12/30/23 04:22 Plt Count 249 10^3/uL (130-450) 12/30/23 04:22 MPV 11.3 fL (7.4-11.4) 12/30/23 04:22 Neut # (Auto) 13.8 10^3/uL (1.5-6.6) H 12/30/23 04:22 Lymph # (Auto) 0.4 10^3/uL (1.5-3.5) L 12/30/23 04:22 [place] # (Auto) 1.3 10^3/uL (0.0-1.0) H 12/30/23 04:22 Eos # (Auto) 0.0 10^3/uL (0.0-0.7) 12/30/23 04:22 Baso # (Auto) 0.0 10^3/uL (0.0-0.1) 12/30/23 04:22 Absolute Nucleated RBC 0.00 x10^3/uL 12/30/23 04:22 Nucleated RBC % 0.0 /100WBC 12/30/23 04:22 Manual Slide Review Indicated 12/30/23 04:22 WBC Morphology NORMAL APPEARANCE (NORMAL) 12/29/23 09:53 Platelet Estimate NORMAL (130-450,000) (NORMAL) 12/30/23 04:22 Platelet Morphology NORMAL APPEARANCE (NORMAL) 12/29/23 09:53 RBC Morph Micro Appear 1+ ANISOCYTOSIS (NORMAL) 1+ HYPOCHROMASIA (NORMAL) 1+ OVALOCYTES (NORMAL) 12/30/23 04:22 RBC Morph Micro Appear 1+ ANISOCYTOSIS (NORMAL) 1+ HYPOCHROMASIA (NORMAL) 1+ OVALOCYTES (NORMAL) 12/30/23 04:22 RBC Morph Micro Appear 1+ ANISOCYTOSIS (NORMAL) 1+ HYPOCHROMASIA (NORMAL) 1+ OVALOCYTES (NORMAL) 12/30/23 04:22 VBG pH 7.228 (7.31-7.41) L 12/30/23 04:22 Ionized Calcium 1.09 mmol/L (1.15-1.33) L 12/30/23 04:22 Sodium 137 mmol/L (135-145) 12/30/23 04:22 Potassium 4.9 mmol/L (3.5-4.5) H 12/30/23 04:22 Chloride 106 mmol/L (101-111) 12/30/23 04:22 Carbon Dioxide 12 mmol/L (21-32) L* 12/30/23 04:22 Anion Gap 19.0 (6-13) H 12/30/23 04:22 BUN 26 mg/dL (6-20) H 12/30/23 04:22 Creatinine 1.3 mg/dL (0.6-1.3) 12/30/23 04:22 Estimated GFR (MDRD) 54 (>89) L 12/30/23 04:22 Glucose 136 mg/dL (74-104) H 12/30/23 04:22 POC Whole Bld Glucose 137 mg/dL (70 - 100) H 12/30/23 06:03 Lactic Acid 9.9 mmol/L (0.5-2.2) H* 12/30/23 00:25 Calcium 9.1 mg/dL (8.5-10.3) 12/30/23 04:22 Phosphorus 5.0 mg/dL (2.5-5.0) 12/30/23 04:22 Magnesium 2.0 mg/dL (1.7-2.3) 12/30/23 04:22 Total Bilirubin 2.3 mg/dL (0.2-1.0) H 12/30/23 04:22 AST 1877 IU/L (10-42) H 12/30/23 04:22 ALT 1141 IU/L (10-60) H 12/30/23 04:22 Alkaline Phosphatase 90 IU/L (42-121) 12/30/23 04:22 Total Creatine Kinase 37 IU/L (30-223) 12/29/23 09:53 Total Protein 5.8 g/dL (6.4-8.9) L 12/30/23 04:22 Albumin 3.5 g/dL (3.2-5.5) 12/30/23 04:22 Globulin 2.3 g/dL (2.1-4.2) 12/30/23 04:22 Albumin/Globulin Ratio 1.5 (1.0-2.2) 12/30/23 04:22 Lipase 15 U/L (11-82) 12/29/23 09:53 Nasal Screen MRSA (PCR) POSITIVE (NEGATIVE) A* 12/30/23 02:30
--- NOTE | 2023-12-30 08:56 | CONSULTATION NOTE ---
Surgery Consult - Admit Date Hospital Admission Date: 12/29/23 - Home Meds/Allergies Home Medications: Patient History Medication Instructions Recorded Confirmed Amlodipine Besylate [Norvasc] 10 mg PO DAILY 12/29/23 Clopidogrel [Plavix] 75 mg PO DAILY 12/29/23 Empagliflozin [Jardiance] 10 mg PO DAILY 12/29/23 Ertugliflozin Pidolate [Steglatro] 15 mg PO DAILY 12/29/23 Furosemide [Lasix] 40 mg PO DAILY 12/29/23 Lisinopril [Zestril] 20 mg PO DAILY 12/29/23 Metoprolol Succinate 100 mg PO DAILY 12/29/23 Nortriptyline [Pamelor] 25 mg PO QPM 12/29/23 Rosuvastatin Calcium 20 mg PO HS 12/29/23 SITagliptin [Januvia] 100 mg PO DAILY 12/29/23 Spironolactone [Aldactone] 25 mg PO DAILY 12/29/23 glipiZIDE [Glipizide] 10 mg PO DAILY 12/29/23 oxyCODONE [Roxicodone] 5 mg PO Q4-6H PRN 12/29/23 Allergies/Adverse Reactions: Allergies Allergy/AdvReac Type Severity Reaction Status Date / Time No Known Drug Allergies Allergy Verified 12/29/23 09:24 - Vital Signs Vital Signs: Last Vital Signs Temp 97.2 F L 12/30/23 04:00 Pulse 102 H 12/30/23 07:00 Resp 23 12/30/23 07:00 BP 102/69 12/30/23 07:00 Pulse Ox 99 12/30/23 07:00 O2 Flow Rate Intake & Output: Intake & Output 12/27/23 12/28/23 12/29/23 12/30/23 23:59 23:59 23:59 23:59 Intake Total 3437 3400 Output Total 400 150 Balance 3037 3250 - Lab Results Result Diagrams: 12/30/23 04:22 12/30/23 04:22 - Consultation Note Consultation Note: General Surgery Consultation Note Assessment: 1) Ascending cholangitis (Gallstones, dilated CBD, elevated LFT's, leukocytosis, lactic acidosis) - Unable to perform MRCP due to pacemaker. 2) Right BKA stump infection-chronic. Uncertain if there is osteomyelitis Recommendation: 1) IV fluids, Blood cultures, IV antibiotics, Keep NPO 2) [facility] as possible <><><><><><><><><><> Reason for Consultation Lactic acidosis Chief Complaint Nausea, emesis HARITHA Villegas is a 78 year old man who has had 3-5 days of nausea, emesis, and inability to keep any food down except for small sips of water. He denies abdominal pain, diarrhea. His symptoms did not improve and he came to the ED where his exam was unremarkable but he was found to have profound lactic acidosis. He underwent CT and US of the abdomen, both of which were normal except for a distended gallbladder and a CBD dilated to 10 mm. He was admitted to the ICU and fluids were started along with IV Zosyn. He was hypotensive on admission but has not yet required vasopressor support. LFT studies in the ED were elevated and on repeat this morning continue to rise. Bakari complains of no ab dominal pain. Past Medical History Hypercholesterolemia, CAD, PVD, DM II Past Surgical History Coronary artery stent, Pacemaker implantation, Right BKA Current Medications See "Medication" section Allergies See "Allergy" section ROS Pertinent positives Nausea, emesis; Denies fever, chills, sweats All other reviewed systems negative Physical Examination Vital Signs: T 97.8, P 105, BP 96/69, RR 26 BMI: 24 GENERAL APPEARANCE: Normal development, normal body habitus, normal grooming PSYCHIATRIC: AAO; Comfortable; Somewhat confused as he thinks he has been here 5 days. Is oriented to person, place, and date EYES: Pupils equal, round and reactive to light, sclera anicteric EARS, NOSE, MOUTH, THROAT: Hearing normal, Oral mucous membranes moist and without lesions; NECK: No crepitus, lymphadenopathy, or thyromegaly LUNGS: Clear to auscultation without wheezing; No use of accessory muscles to breathe CARDIOVASCULAR: Heart-NSR without murmurs; Palpable carotid arteries - no bruits; Femoral, Pedal pulses palpable; Peripheral edema absent ABD: Soft, scaphoid, No palpable masses, No tenderness; + BS LYMPHATIC: Neck, Axillae, Groin no palpable adenopathy EXTREMITIES: No clubbing, cyanosis; Left great toe with evidence of chronic low grade inflammation. Right BKA stump with chronic epidermal loss on the anterior surface with visible soft tissue. The bone is palpable but not visible. No abscess or necrotizing infection. SKIN: Anicteric; No rashes, lesions, Ulcerations Labs See "Labs" section This morning: WBC 15.7; T Bili 2.3; AST 1,877; ALT 1,141 Antibiotics: Zosyn Imaging CT ABD/Pelvis - distended gallbladder with small stones US RUQ - Distended gallbladder with small stones; CBD dilated to 10 mm All images were personally reviewed by me for this encounter. Dannie Ramirez MD, FACS General Surgery Service [phone]
[2023-12-30 08:57] LABS: ABG HCO3 11.6 mmol/L (22.0-26.0); ABG PCO2 26 mmHg (34-45); ABG PH 7.26 (7.35-7.45); ABG TCO2 12.4 MMOL/L (21.0-29.0); ALLEN TEST POSITIVE
[2023-12-30 08:59] LABS: ABG OXYGEN SATURATION 50 % (94-98); ABG PO2 34 mmHg (80-100)
[2023-12-30] MEDS: SODIUM BICARBONATE 150 MEQ in DEXTROSE 5% 1,000 ML IV SCH (09:00)
[2023-12-30] MEDS: ethyl alcohoL 62% SWAB AMPULE NAS SCH (09:02)
[2023-12-30] MEDS: CLOPIDOGREL 75 MG TABLET PO SCH (09:02)
[2023-12-30] MEDS: ENOXAPARIN 40 MG/0.4 ML SYRINGE SUBQ SCH (09:03)
[2023-12-30] MEDS: FUROSEMIDE 40 MG TABLET PO SCH (09:15)
[2023-12-30] MEDS: METOPROLOL SUCCINATE 50 MG TABLET PO SCH (09:16)
--- NOTE | 2023-12-30 09:42 | XRAY Report ---
PROCEDURE: Tib/Fib RT INDICATIONS: ? infection of bone involvement R BKA stump TECHNIQUE: 2 views of the tibia and fibula were acquired. COMPARISON: None. FINDINGS: Bones: Right lower extremity BKA postsurgical changes. No fractures or dislocations. No suspicious bony lesions. No osseous erosions or periosteal reaction. Soft tissues: No suspicious soft tissue calcifications or masses. No soft tissue gas. IMPRESSION: No felix evidence of osteomyelitis. Please note plain-film radiographs can be insensitive to changes of osteomyelitis in the initial 15 days of the disease. If there is continued clinical concern for os teomyelitis, consider three-phase nuclear medicine bone scan or MRI for additional evaluation. Reviewed by: Maryam Ortiz MD, PhD on 12/30/2023 9:41 AM PDT Approved by: Maryam Ortiz MD, PhD on 12/30/2023 9:41 AM PDT Station ID: [id number]
[2023-12-30] MEDS: INSULIN LISPRO 300 UNIT/3 ML PEN SUBQ SCH (11:59)
--- NOTE | 2023-12-30 15:20 | DISCHARGE SUMMARY ---
Discharge Summary Admit Date: 12/29/23 Discharge Date: 12/30/23 Discharging Provider: Feliciano Grossman Code Status: Attempt Resuscitation Condition at Discharge: Stable Discharge Disposition: 02 Transfer Acute Care Hosp - [facility] History of Present Illness: Patient is a 78-year-old male with past medical history of a left BKA due to peripheral vascular disease, coronary artery disease s/p PCI, CVA, hypertension, hyperlipidemia, type 2 diabetes, PPM who presented to the ED due to complaints of several days of nausea and vomiting without any associated abdominal pain. He was recently evaluated by his vascular surgeon at [facility] a week prior to his ED visit for his stump evaluation. Per patient, vascular surgeon noted that the wound was appropriate. He has not endorsing any pain or symptoms from his wound site. In the ED, patient's lactic acid was elevated. I did request a CT abdomen/pelvis be performed which revealed gallbladder hydrops. I did request ED discussed this with general surgery and they were consulted on admission. To my evaluation, patient denies any symptoms and reported that his nausea and vomiting had improved significantly. His lactic acid continued to trend upward however. An ultrasound was performed which revealed evidence of cholelithiasis. Choledocholithiasis could not be ruled out. - HOSPITAL COURSE Hospital Course: Patient is a 78-year-old male who presented to the ED due to complaints of nausea and vomiting over the past several days. He was noted to have an elevated lactic acid of 5.5 and was therefore admitted. Upon admission, CT abdomen/pelvis and ultrasound were performed which were concerning for acute cholecystitis. He was eval by general surgery who did not recommend any s urgical intervention given he did not have any profound abdominal pain. He was started on IV Zosyn and IV fluids. Blood cultures were obtained. Overnight, patient's condition deteriorated as his lactic acid increased and he became hypotensive requiring ICU monitoring. Patient did not require any Levophed. However his lactic acid increased to a max of 9.9 and his liver enzymes trended upwards into the thousands. The plan was to perform an MRCP however his pacemaker was not compatible with our MRI. Due to concern for acute cholangitis/choledocholithiasis, case was discussed with gastroenterology at [facility] and he was accepted into their ICU. Of note, patient has a recent right lower extremity BKA which was performed at [facility]. He also has a prior history of CAD s/p PCI x 2, TAVR, CVA without residual deficits, type 2 diabetes. - ALLERGIES Allergies/Adverse Reactions: Allergies Allergy/AdvReac Type Severity Reaction Status Date / Time No Known Drug Allergies Allergy Verified 12/29/23 09:24 - MEDICATIONS Home Medications: Ambulatory Orders Medication Instructions Recorded Confirmed Amlodipine Besylate [Norvasc] 10 mg PO DAILY 12/29/23 Clopidogrel [Plavix] 75 mg PO DAILY 12/29/23 12/30/23 Empagliflozin [Jardiance] 10 mg PO DAILY 12/29/23 Ertugliflozin Pidolate [Steglatro] 15 mg PO DAILY 12/29/23 Furosemide [Lasix] 40 mg PO DAILY 12/29/23 Lisinopril [Zestril] 20 mg PO DAILY 12/29/23 Metoprolol Succinate 100 mg PO DAILY 12/29/23 Nortriptyline [Pamelor] 25 mg PO QPM 12/29/23 12/30/23 Rosuvastatin Calcium 20 mg PO HS 12/29/23 SITagliptin [Januvia] 100 mg PO DAILY 12/29/23 Spironolactone [Aldactone] 12.5 mg PO DAILY 12/29/23 12/30/23 glipiZIDE [Glipizide] 5 mg PO BID 12/29/23 12/30/23 oxyCODONE [Roxicodone] 5 mg PO Q4-6H PRN 12/29/23 12/30/23 Lisinopril [Zestril] 2.5 mg PO BID 12/30/23 12/30/23 Metoprolol Succinate [Toprol Xl] 25 mg PO DAILY 12/30/23 12/30/23 - PHYSICAL EXAM AT DISCHARGE General Appearance: positive: No acute distress, Alert Respiratory: positive: No respiratory distress, Breath sounds nml Cardiovascular: positive: No murmur, No gallop Abdomen: positive: Non-tender, No organomegaly, Nml bowel sounds, No distention Back: positive: Nml inspection - LABS Result Diagrams: 12/30/23 04:22 12/30/23 04:22 - SEPSIS Current Stage of Sepsis: Severe sepsis Possible source of Sepsis: GI tract/intra-abdominal - TIME SPENT Time Spent in Discharge (Minutes): 35
--- NOTE | 2023-12-30 16:07 | PHARMACY PROGRESS NOTE ---
- Best Possible Medication History Admit Date and Time: 12/29/23 1755 Processed by: Pharmacy Medications reviewed in ED?: Yes Medication History completed: Yes Patient Interview: Pt unable to participate (Patient confused and unable to confirm medications) Secondary Source(s): Spouse/Significant other (bio medical technician, Amanda, reviewed patient's med list with patient's , Carol), Physician records, Insurance records There appears to be some conflicting insurance fill information between 12/08 and 12/23 through [employer]. Some medications that the patient was on in 2022 appear to have been stopped, doses changed, or switched to alternatives based on 12/08 [employer] data (despite appearing again on a 12/23 [employer] event). This also aligns with what the was able to confirm. Med list ultimately confir med based on list and prescription bottles the patient's had access to. As the person ultimately responsible for medication therapy, providers are able to order a medication from an existing home medication list in [facility] via the "Reconcile Routine" prior to Confirmation of that medication by marketing support manager. Such practice is discouraged except when the physician, in their clinical judgment, deems that a medical need exists for a medication without regard to previous use.
--- NOTE | 2023-12-30 17:36 | Discharge Plan ---
Discharge Plan Problem Reviewed?: Yes Disposition: 02 Transfer Acute Care Hosp Condition: Stable No Smoking: If you smoke, Please STOP! Call for help.
[2023-12-30 18:09] VITALS: BP 97/79; O2SAT 95
== END 2023-12-30 18:00 | disposition short-term general hospital (02) | DRG 444 ==
LOC: EDUNIT# → ED 09:12 → MS2 17:55 → ICU 12-30 01:48
PROVIDERS: ADMIT Family Medicine; ATTEND Family Medicine
DX: R74.02 Elevation of levels of lactic acid dehydrogenase [LDH] (principal); E11.9 Type 2 diabetes mellitus without complications; K80.30 Calculus of bile duct with cholangitis, unspecified, without obstruction; A41.9 Sepsis, unspecified organism; R11.2 Nausea with vomiting, unspecified; E86.9 Volume depletion, unspecified; K20.90 Esophagitis, unspecified without bleeding; R65.20 Severe sepsis without septic shock; K80.20 Calculus of gallbladder without cholecystitis without obstruction; K57.30 Diverticulosis of large intestine without perforation or abscess without bleeding; K82.1 Hydrops of gallbladder; E87.21 Acute metabolic acidosis; E11.51 Type 2 diabetes mellitus with diabetic peripheral angiopathy without gangrene; I25.10 Atherosclerotic heart disease of native coronary artery without angina pectoris; I10 Essential (primary) hypertension; E78.5 Hyperlipidemia, unspecified; I95.9 Hypotension, unspecified; Z86.73 Personal history of transient ischemic attack (TIA), and cerebral infarction without residual deficits; Z95.0 Presence of cardiac pacemaker; Z79.84 Long term (current) use of oral hypoglycemic drugs; Z79.02 Long term (current) use of antithrombotics/antiplatelets; Z95.5 Presence of coronary angioplasty implant and graft; Z89.511 Acquired absence of right leg below knee
CPT/HCPCS: 36415; 36600; 73590; 74177; 76705; 80053; 82330; 82550; 82803; 83605; 83690; 83735; 84100; 85025; 87040; 87150; 96361; 96374; 96375; 99285; A9270; J1170; J1650; J2765; J7120; P9047; Q9967